=== PATIENT | female | born 1990 ===

== ENCOUNTER 2021-09-12 21:31 | Emergency (ER) | payer MEDICAID, OTHER ==
[~2021-09-12] VITALS: Ht 170.2 cm; Wt 86.4 kg
[2021-09-13 02:08] VITALS: BP 123/72
== END 2021-09-13 02:10 | disposition home or self-care (01) ==
LOC: ER 21:31
DX: S13.9XXA Sprain of joints and ligaments of unspecified parts of neck, initial encounter (principal); M62.838 Other muscle spasm; V43.62XA Car passenger injured in collision with other type car in traffic accident, initial encounter; Y93.89 Activity, other specified; Y92.410 Unspecified street and highway as the place of occurrence of the external cause; Y99.8 Other external cause status
CPT/HCPCS: 70450; 72125